=== PATIENT | female | born 1965 | race Hispanic/Latino ===

== ENCOUNTER 2017-10-29 08:13 | Emergency (ER) | payer BC, OTHER ==
[~2017-10-29 08:13] MED LIST: ALBU8.5H8 IH; FLUT16H NS; LORA1TAB3 PO; PROM25 PO; TYL3 PO; ZOLP5TAB8 PO; [UNRECOGNIZED DRUG - CODE] OU
== END 2017-10-29 09:03 | disposition home or self-care (01) ==
LOC: EDH 08:13
DX: J02.9 Acute pharyngitis, unspecified (principal); G43.909 Migraine, unspecified, not intractable, without status migrainosus; Z72.0 Tobacco use
CPT/HCPCS: 99281

== ENCOUNTER → 2021-01-10 | Outpatient (CLI) | payer MEDICAID ==
[~2021-01-10] MED LIST changes: +[UNRECOGNIZED DRUG - CODE] OU; -[UNRECOGNIZED DRUG - CODE] OU
== END | disposition home or self-care (01) ==
LOC: SLP 20:34
PROVIDERS: ATTEND Family Medicine
DX: R06.83 Snoring (principal)
CPT/HCPCS: 95810

== ENCOUNTER → 2021-01-12 | Outpatient (CLI) | payer MEDICAID | END | disposition home or self-care (01) | LOC: SLP 20:30 | PROVIDERS: ATTEND Family Medicine | DX: R06.83 Snoring (principal); G47.00 Insomnia, unspecified | CPT/HCPCS: 95811 ==